=== PATIENT | female | born 2000 | race Two or more races ===

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

== ENCOUNTER 2019-08-08 10:02 | Emergency (ER) | payer MEDICAID ==
[~2019-08-08] VITALS: Ht 152.4 cm; Wt 54.4 kg
[~2019-08-08 10:02] MED LIST changes: +AMPH10TA2 PO; -AMPH10TA21 PO
[2019-08-08 10:10] VITALS: BP 111/72
== END 2019-08-08 11:59 | disposition home or self-care (01) ==
LOC: ER 10:06
DX: S16.1XXA Strain of muscle, fascia and tendon at neck level, initial encounter (principal); S00.83XA Contusion of other part of head, initial encounter; V49.49XA Driver injured in collision with other motor vehicles in traffic accident, initial encounter; W22.11XA Striking against or struck by driver side automobile airbag, initial encounter; Y93.89 Activity, other specified; Y99.8 Other external cause status; Y92.488 Other paved roadways as the place of occurrence of the external cause

== ENCOUNTER 2021-12-09 16:50 | Emergency (ER) | payer MEDICAID ==
[~2021-12-09] VITALS: Ht 152.4 cm; Wt 58.1 kg
[2021-12-09 17:02] VITALS: BP 107/73
[2021-12-09 17:33] LABS: Urine Bacteria FEW /hpf (None Seen); Urine Blood Negative /uL (Negative); Urine Mucus FEW (None Seen); Urine Specific Gravity 1.025 (1.001-1.035); Urine WBC 1 /hpf (0 - 5)
[2021-12-09 18:33] LABS: Hemoglobin 14.7 g/dL (12.2-16.2); Nucleated Red Blood Cells % 0.1 %
[2021-12-09 18:34] LABS: BUN/Creatinine Ratio 15.5; Calcium 9.3 mg/dL (8.5-10.1); Potassium 3.9 mmol/L (3.5-5.1)
[2021-12-09 18:37] LABS: Bilirubin, Total 0.3 mg/dL (0.2-1.0)
[2021-12-09 18:41] LABS: Basophils # (auto) 0.1 10 ^3/uL (0-0.2); Basophils % (auto) 0.5 % (0.0-2.0); Eosinophils # (auto) 0.2 10 ^3/uL (0-0.8); Eosinophils % (auto) 1.5 % (0.0-7.0); Hematocrit 44.2 % (36.0-46.0); Lymphocytes # (auto) 3.3 10 ^3/uL (0.4-5.4); Lymphocytes % (auto) 31.2 % (10.0-50.0); Mean Corpuscular Hemoglobin 28.5 pg (28.0-32.0); Mean Corpuscular Hgb Conc. 33.2 g/dL (32.0-36.0); Mean Corpuscular Volume 85.8 fL (80.0-100.0); Monocytes # (auto) 0.6 10 ^3/uL (0-1.3); Monocytes % (auto) 5.8 % (0.0-12.0); Neutrophils # (auto) 6.5 10 ^3/uL (1.6-8.6); Red Blood Cells 5.15 10^6/uL (4.0-5.20); Red Cell Distribution Width 11.6 % (11.8-14.3); White Blood Cell 10.6 10^3/uL (4.4-10.8)
[2021-12-09] MEDS ORDERED: ONDA-144 PO (19:27)
== END 2021-12-09 19:56 | disposition home or self-care (01) ==
LOC: ER 16:54
DX: N83.201 Unspecified ovarian cyst, right side (principal); R11.0 Nausea; Z79.899 Other long term (current) drug therapy
CPT/HCPCS: 36415; 76705; 76856; 80053; 81001; 81025; 82150; 83690; 85025

== ENCOUNTER 2023-05-02 20:36 | Emergency (ER) | payer MEDICAID ==
[~2023-05-02] VITALS: Ht 152.4 cm; Wt 62.7 kg
[~2023-05-02 20:36] MED LIST changes: +ONDA-144 PO
[2023-05-03 00:17] LABS: Urine Bacteria NONE SEEN /hpf (None Seen); Urine Blood 3+ /uL (Negative); Urine Mucus FEW (None Seen); Urine WBC 995 /hpf (0 - 5); Urine WBC Clumps PRESENT /hpf (None Seen)
[2023-05-03] MEDS ORDERED: SULF800T23 PO (00:19)
[2023-05-03] MEDS ORDERED: cefTRIAXone SOD 1,000 MG VL IM ONE (00:30)
[2023-05-03 02:30] VITALS: BP 110/73
== END 2023-05-03 02:30 | disposition home or self-care (01) ==
LOC: ER 20:38
DX: N39.0 Urinary tract infection, site not specified (principal); Z79.899 Other long term (current) drug therapy
CPT/HCPCS: 81001; 81025; 96372; 99283; J0696

== ENCOUNTER 2025-06-25 10:00 | Emergency (ER) | payer MEDICAID ==
[~2025-06-25] VITALS: Ht 152.4 cm; Wt 55.4 kg
[~2025-06-25 10:00] MED LIST changes: +SULF800T23 PO
--- NOTE | 2025-06-25 10:22 | ED.PDOC ---
History of Present Illness HPI Comments A 25 year-old female presents to the ED with a chief complaint of right pelvic pain with associated nausea and occasional dysuria as of X1 month ago. Patient reports symptoms worsening with "sharper" pelvic pain as of X2 days ago. Patient has a social history of ETOH intoxification and occasional MJ usage. Patient has no further complaints at this time and otherwise denies further associated symptoms of emesis, hematuria, chest pain, urgency, fever, or chills. Chief Complaint: Pelvic Pain Time Seen by MD: 10:05 Primary Care Provider: JOSELUIS Reviewed Notes: Nurses Notes, Medications, Allergies Allergies: Coded Allergies: NO KNOWN ALLERGIES (Unverified , 04/11/17) Home Meds Active Scripts Ciprofloxacin Hcl (Cipro) 500 Mg Tab, 1 TAB PO BID, #14 TAB Prov:EVON BROWER MD 06/25/25 Sulfamethoxazole W/Trimethopri (Trimethoprim/Sulfamethoxa) 1 Tab Tab, 1 TAB PO BID for 7 Days, #14 TAB 0 Refills Prov:CLARISSA GONZALEZ 05/03/23 Ondansetron (Zofran) 4 Mg Tab, 4 MG PO Q8HP PRN for 3 Days, #10 MG Prov:ETHAN GARNER DO 12/09/21 Reported Medications Amphetamine-Dextroamphetamine (Adderall) 10 Mg Tab, 2 TAB PO DAILY PRN for A NXIETY, #30 TAB 04/11/17 Information Source: Patient Mode of Arrival: Ambulatory Severity: Moderate Timing: Days Duration: Intermittent Location: RLQ / Pelvic Associated signs and symptoms N / Occasional Dysuria Past Medical History PAST MEDICAL HISTORY: Anxiety Surgical History: Denies all surgeries [employer] History: No Pertinent [employer]ATE History Family History Family History: Unknown Social History Smoker: Other Alcohol: Occasionally Drugs: Marijuana Lives In: Home Constitutional: denies: chills, diaphoresis, fatigue, fever, malaise, sweats, weakness, others EENTM: denies: blurred vision, double vision, ear bleeding, ear discharge, ear drainage, ear pain, ear ringing, eye pain, eye redness, hearing loss, mouth pain, mouth swelling, nasal discharge, nose bleeding, nose congestion, nose pain, photophobia, tearing, throat pain, throat swelling, voice changes, others Respiratory: denies: cough, hemoptysis, orthopnea, SOB at rest, shortness of breath, SOB with excertion, stridor, wheezing, others Cardiovascular: denies: chest pain, dizzy spells, diaphoresis, Dyspnea on exertion, edema, irregular heart beat, left arm pain, lightheadedness, palpitations, PND, syncope, others Gastrointestinal: reports: nausea; denies: abdomen distended, abdominal pain, blood streaked bowels, constipated, diarrhea, dysphagia, difficulty swallowing, hematemesis, melena, poor appetite, poor fluid intake, rectal bleeding, rectal pain, vomiting, others Genitourinary: reports: dysuria, others (Pelvic Pain ); denies: abnormal vagina bleeding, burning, dyspareunia, flank pain, frequency, hematuria, incontinence, pain, , vagina discharge, urgency Neurological: denies: dizziness, fainting, headache, left sided numbness, left sided weakness, numbness, paresthesia, pre-existing deficit, right sided numbness, right sided weakness, seizure, speech problems, tingling, tremors, weakness, others Musculoskeletal: denies: back pain, gout, joint pain, joint swelling, muscle pain, muscle stiffness, neck pain, others Integumetry: denies: bruises, change in color, change in hair/nails, dryness, laceration, lesions, lumps, rash, wounds, others Allergic/Immunocompromised: denies: Difficulty Healing, Frequent Infections, Hives, Itching, others Hematologic/Lymphatic: denies: anemia, blood clots, easy bleeding, easy bruising, swollen glands, others Endocrine: denies: excessive hunger, excessive sweating, excessive thirst, excessive urination, flushing, intolerance to cold, intolerance to heat, unexplained weight gain, unexplained weight loss, others Psychiatric: denies: anxiety, bipolar disorder, depression, hopeless, panic disorder, schizophrenia, sleepless, suicidal, others All Other Systems: Reviewed and Negative Physical Exam General Appearance: Moderate Distress HEENT: Normal ENT Inspection, Pharynx Normal, TMs Normal Neck: Full Range of Motion, Non-Tender, Normal, Normal Inspection Respiratory: Chest Non-Tender, Lungs Clear, No Accessory Muscle Use, No Respiratory Distress, Normal Breath Sounds Cardiovascular: No Edema, No JVD, No Murmur, No Gallop, Normal Peripheral Pulses, Regular Rate/Rhythm Breast Exam: Deferred Gastrointestinal: No Organomegaly, No Pulsatile Mass, Normal Bowel Sounds, RLQ, Soft Genitalia: Deferred Pelvic: Deferred Rectal: Deferred Extremities: No calf tenderness, Normal capillary refill, Normal inspection, Normal range of motion, Non-tender, No pedal edema Musculoskeletal : Apperance: Normal Neurologic: Alert, manager site II-XII nml as Tested, No Motor Deficits, Normal Affect, Normal Mood, No Sensory Deficits Cerebellar Function: Normal Reflexes: Normal Skin: Dry, Normal Color, Warm Lymphatic: No Adenopathy Was a procedure done? Was a procedure done?: No Differential Dx Considerations may include: Ovarian Cysts, Ectopic , Gastritis, Fever, UTI X-Ray, Labs, Meds, VS Vital Signs Date Time Temp Pulse Resp B/P (MAP) Pulse Ox O2 Delivery O2 Flow Rate FiO2 06/25/25 10:15 98.5 79 18 97/56 98 98.5 Lab Test 06/25/25 10:19 Range/Units Urine Color Yellow Yellow Urine Clarity Clear Clear Urine pH 5.5 5.0-9.0 Urine Specific [place] 1.029 1.001-1.035 Urine Protein Negative Negative Urine Ketones Negative Negative Urine Blood Negative Negative /uL Urine Nitrite Negative Negative Urine Bilirubin Negative Negative Urine Urobilinogen Normal Negative mg/dL Urine Leukocyte Esterase 1+ Negative /uL Urine RBC 3 0 - 4 /hpf Urine Microscopic WBC 6 H 0-5 /HPF Urine Squamous Epithelial Cells Few <5 /hpf Urine Bacteria Few H None Seen /hpf Urine Mucus Few None Seen Urine Glucose Normal Normal mg/dL Urine Test Negative Negative [place] [address] Ph: [phone] DIAGNOSTIC IMAGING Diagnostic Imaging Report : [id number] Signed PATIENT: KATHERINE BUCHANAN ACCT: [id number] UNIT: [id number] : 2000 LOC: ER ROOM / BED: / AGE / SEX: 25 / F ADM STATUS: REG ER SERVICE [id number] ORDERING PHYSICIAN: EVON BROWER MD PROCEDURE(s): PELUS - PELVIC REASON: right pelvic pain ORDER NUMBER(s): [id number], ACCESSION NUMBER(s): [id number] Technique: Real-time ultrasound images through the pelvis using a transabdominal transducer. Indication: right pelvic pain Comparison: None Findings: The uterus measures 5. cm. The endometrial stripe measures 3 mm. There are no focal masses. There is no abnormal flow in the endometrium. Right ovary measures 3.7 x 3.7 x 3.4 cm. Normal flow on color doppler images. Right ovarian cyst with septation /lacy matrix measuring 2.8 cm. Left ovary is nonvisualized. There is no significant free fluid in the pelvis. Impression: Left ovary nonvisualized. A 2.8 cm right ovarian cyst with septation /lacy matrix. Recommend follow-up ultrasound in 6 weeks to ensure resolution The urine test is positive for UTI The patient is being discharged The patient will follow up with the primary care doctor The test is negative The patient is given a prescription of Cipro The patient is encouraged to take acetaminophen or ibuprofen for the pain Images Reviewed?: Images reviewed and evaluated by me Time of 1ST Reevaluation: 10:42 Reevaluation 1ST: Unchanged Time of 2ND Reevaluation: 12:10 Reevaluation 2ND: Improved Patient Education/Counseling: Diagnosis, Treatment, Prognosis, Need For Follow Up Family Education/Counseling: No Family Present Medical Screening: No EMC Exist At This Time SEPSIS Sepsis Screen Physician Orders Pelvic (06/25/25 10:19) Vital Signs Date Time Temp Pulse Resp B/P (MAP) Pulse Ox O2 Delivery O2 Flow Rate FiO2 06/25/25 10:15 98.5 79 18 97/56 98 98.5 Departure 1 Departure Time of Disposition: 12:10 Impression: Primary Impression: Right ovarian cyst Additional Impression: UTI (urinary tract infection) Qualified Codes: N30.00 - Acute cystitis without hematuria Disposition: 01 HOME / SELF CARE / HOMELESS Condition: Fair e-Prescriptions Ciprofloxacin Hcl (Cipro) 500 Mg Tab 1 TAB PO BID, #14 TAB Prov: EVON BROWER MD 06/25/25 Discharged With: Self Critical Care Note Critical Care Time?: No Stability Stability form required: No Heart Score Heart Score: Heart Score Response (Comments) Value History N/A 0 EKG N/A 0 Age N/A 0 Risk Factors N/A 0 Troponin N/A 0 Total 0 I personally scribed for EVON BROWER MD ([email or web address]) on 06/25/25 at 10:22. Electronically submitted by Citlaly Quintanilla ([email or web address]). I personally scribed for EVON BROWER MD ([email or web address]) on 06/25/25 at 12:07. Electronically submitted by Citlaly Quintanilla ([email or web address]). EVON BROWER MD Jun 25, 2025 10:22
[2025-06-25 11:02] LABS: Urine Protein, UAD Negative (Negative)
--- NOTE | 2025-06-25 11:57 | DVH ---
Technique: Real-time ultrasound images through the pelvis using a transabdominal transducer. Indication: right pelvic pain Comparison: None Findings: The uterus measures 5. cm. The endometrial stripe measures 3 mm. There are no focal masses. There i s no abnormal flow in the endometrium. Right ovary measures 3.7 x 3.7 x 3.4 cm. Normal flow on color doppler images. Right ovarian cyst with septation /lacy matrix measuring 2.8 cm. Left ovary is nonvisualized. There is no significant free fluid in the pelvis. Impression: Left ovary nonvisualized. A 2.8 cm right ovarian cyst with septation /lacy matrix. Recommend follow-up ultrasound in 6 weeks t o ensure resolution
[2025-06-25] MEDS ORDERED: CIPR-173 PO (12:09)
[2025-06-25 12:29] VITALS: BP 110/78; PULSE 76; RESP 16; TEMP 98.7; O2SAT 98
== END 2025-06-25 12:31 | disposition home or self-care (01) ==
LOC: ER 10:00
DX: N83.201 Unspecified ovarian cyst, right side (principal); N39.0 Urinary tract infection, site not specified; F41.9 Anxiety disorder, unspecified; F17.200 Nicotine dependence, unspecified, uncomplicated; Z79.899 Other long term (current) drug therapy
CPT/HCPCS: 76856; 81001; 81025